=== PATIENT | female | born 1940 | race Caucasian/White ===

== ENCOUNTER 2018-04-14 03:12 | Emergency (ER) | payer OTHER ==
[~2018-04-14] VITALS: Ht 149.9 cm; Wt 70.8 kg
[2018-04-14] MEDS ORDERED: COZAAR50 MG (03:20)
[2018-04-14] MEDS ORDERED: SINGULEAR (03:21)
[2018-04-14] MEDS ORDERED: BUDESONIDE0.5 MG/2 M IH (06:20)
[2018-04-14] MEDS ORDERED: PROMETH-CODEIN 65 ML PO (06:20)
[2018-04-14] MEDS ORDERED: LEVALBUTER1.25 MG/3 IH (06:20)
[2018-04-14] MEDS ORDERED: TESSALON PERLE100 M1 PO (06:20)
== END 2018-04-14 06:25 | disposition home or self-care (01) ==
LOC: ER 03:12
DX: J45.901 Unspecified asthma with (acute) exacerbation (principal); J11.1 Influenza due to unidentified influenza virus with other respiratory manifestations